=== PATIENT | male | born 1960 | race Caucasian/White ===

== ENCOUNTER → 2017-01-25 | Outpatient (CLI) | payer MEDICAID ==
--- NOTE | 2017-01-25 13:55 | XR ---
EXAMINATION TYPE: XR chest 2V DATE OF EXAM: 01/25/2017 COMPARISON: NONE INDICATION: 5 pounds weight loss TECHNIQUE: Frontal and lateral views of the chest are obtained. FINDINGS: The heart size is normal. The pulmonary vasculature is normal. The lungs are clear. IMPRESSION: 1. No acute pulmonary process.
== END | disposition home or self-care (01) ==
LOC: RADXRMAIN 11:19
PROVIDERS: ATTEND Family Medicine
DX: R63.4 Abnormal weight loss (principal)
CPT/HCPCS: 71020

== ENCOUNTER → 2017-08-28 | Outpatient (CLI) | payer MEDICAID ==
[2017-08-30 09:22] LABS: Hepatits C Virus RNA Not detected (Not detected); Hepatits C Virus RNA, Quant <12 IU/mL (<12); LOG HCV IU/mL <1.08 (<1.08)
== END | disposition home or self-care (01) ==
LOC: LABWHC1 12:04
PROVIDERS: ATTEND Family Medicine
DX: B18.2 Chronic viral hepatitis C (principal)
CPT/HCPCS: 36415; 87522

== ENCOUNTER → 2017-09-05 | Outpatient (CLI) | payer MEDICAID ==
--- NOTE | 2017-09-05 16:00 | MR ---
EXAMINATION TYPE: MR cervical spine wo con DATE OF EXAM: 09/05/2017 COMPARISON: 06/28/2012 HISTORY: Neck Pain with Left arm and Hand Weakness and Numbness Previous MRI on PACS TECHNIQUE: Multiplanar, multisequence images of the cervical spine were acquired. C2-C3: No evidence for degenerative disc disease. No disc bulge/herniation or protrusion. No Canal stenosis. Foramina are patent bilaterally. C3-C4: No evidence for degenerative disc disease. No disc bulge/herniation or protrusion. No Canal stenosis. Foramina are patent bilaterally. C4-C5: No evidence for degenerative disc disease. No disc bulge/herniation or protrusion. No Canal stenosis. Foramina are patent bilaterally. C5-C6: Moderate to severe degenerative disc disease with posterior spondylosis. Disc central protrusi on capped by spur with hypertrophic change of the uncovertebral joints results in moderate canal sten osis and abuts the anterior margin the spinal cord. Severe bilateral foraminal encroachment. C6-C7: Degenerative disc disease and broad-based disc bulging with uncovertebral joint hypertrophy. N o Canal stenosis. Neural foramina remain patent. C7-T1: No evidence for degenerative disc disease. No disc bulge/herniation or protrusion. No Canal stenosis. Foramina are patent bilaterally. Cervical segments are intact. There is normal alignment. Cervical spinal cord is of normal signal. Craniovertebral junction relationships are within normal limits. There is a stable appearing 9 mm n odule in the right supraclavicular region which may represent a cyst or lymph node. Unchanged from 20 12. IMPRESSION: 1. There is mild progression of degenerative disc disease and posterior spondylosis and disc central protrusion capped by spur at C5-C6 which results in moderate canal stenosis and abuts the anterior ma rgin of the spinal cord. Severe bilateral foraminal encroachment. 2. Stable right supraclavicular soft tissue nodule. Measures 1 cm or less. 3. Stable disc desiccation, posterior spondylosis C6-C7 with no canal stenosis or significant foramin al encroachment.
== END | disposition home or self-care (01) ==
LOC: RADMRIMAIN 15:02
PROVIDERS: ATTEND Family Medicine
DX: M48.02 Spinal stenosis, cervical region (principal); M50.222 Other cervical disc displacement at C5-C6 level; M50.322 Other cervical disc degeneration at C5-C6 level; M47.812 Spondylosis without myelopathy or radiculopathy, cervical region
CPT/HCPCS: 72141

== ENCOUNTER → 2017-12-21 | Outpatient (CLI) | payer MEDICAID ==
[2017-12-24 08:06] LABS: Hepatits C Virus RNA Not detected (Not detected); Hepatits C Virus RNA, Quant <12 IU/mL (<12); LOG HCV IU/mL <1.08 (<1.08)
== END | disposition home or self-care (01) ==
LOC: LABWHC1 12:51
DX: B18.2 Chronic viral hepatitis C (principal)
CPT/HCPCS: 36415; 87522

== ENCOUNTER → 2018-01-30 | Outpatient (CLI) | payer MEDICAID, MEDICARE ==
--- NOTE | 2018-01-31 08:47 | CT ---
EXAMINATION TYPE: CT abdomen pelvis wo con, CT ChestAbdPelvis w con DATE OF EXAM: 01/30/2018 COMPARISON: None HISTORY: Abnormal weight loss. (accession [id number]), Abnormal weight loss (accession [id number]) CT DLP: 289.4 (accession [id number]), 562.9 (accession [id number]) mGycm Automated exposure control for dose reduction was used. TECHNIQUE: Helical acquisition of images was performed from the lung bases through the pelvis initia lly without contrast and subsequently CT chest, abdomen, and pelvis were obtained with contrast utili zing 100 mL of Isovue-300. FINDINGS: LUNGS: Very mild paraseptal emphysematous changes are seen with few scattered blebs. Within the right middle lobe there are 2 3 mm solid pulmonary nodules that are subpleural on series 5 image 42 and im age 50. Linear pleural-parenchymal scarring is seen at the lung bases in addition to bibasilar subseg mental atelectasis. No pulmonary mass or focal consolidation. No evidence of pulmonary fibrosis. No p neumothorax or pleural effusion. There is mild pectus excavatum. MEDIASTINUM: Thyroid gland is somewhat heterogenous containing a dystrophic calcification and few sub centimeter hypoattenuated nodules. Thoracic aorta is within normal limits measuring 3.7 cm. No pulmon partha arterial enlargement. No greater than 1 cm short axis lymph nodes in the mediastinum. No cardiome enrike or pericardial effusion. LIVER/GB: No evidence of cholelithiasis. The liver is unremarkable in enhancement without intrahepati c biliary ductal dilatation or a definable mass. PANCREAS: Pancreas is homogeneous in enhancement without ductal dilatation. SPLEEN: No splenomegaly. ADRENALS: No significant abnormality is seen. KIDNEYS: The unenhanced images show a 2 mm left upper pole nonobstructing renal calculus. No right-si ded renal calculi. No hydronephrosis bilaterally. Kidneys enhance and excrete symmetrically. No focal renal masses seen. FREE AIR: No free air is visualized ADENOPATHY: No greater than 1 cm short axis lymph nodes are seen within the abdomen or pelvis. REPRODUCTIVE ORGANS: Heterogenous containing dystrophic calcifications within the central zone. URINARY BLADDER: No significant abnormality is seen. OSSEOUS STRUCTURES: Few scattered punctate osseous sclerotic foci are present throughout the spine a nd pelvis favored to relate to pulmonary lesions. The largest is seen at the superior endplate of L1. This measures 6 mm. Mild multilevel degenerative changes of the spine are noted. BOWEL: No bowel dilatation. No evidence of obstruction. Amount of retained colonic stool is seen sli ghtly limiting evaluation of the colon. Additionally oral contrast has not passed to the large bowel also limiting evaluation of the large bowel. No small bowel wall thickening. OTHER: Mild calcific atheromatous changes are seen of the abdominal aorta and its branches. Abdominal aorta is of normal course and caliber. IMPRESSION: 1. NO SOLID VISCERAL SUSPICIOUS MASS OR ADENOPATHY WITHIN THE CHEST, ABDOMEN, OR PELVIS. 2. TWO RIGHT-SIDED SUBPLEURAL 3 MM SOLID PULMONARY NODULES. CONSENSUS CRITERIA RECOMMENDS REPEAT CT I N 12 MONTHS TO ASSESS FOR INTERVAL GROWTH.
== END | disposition home or self-care (01) ==
LOC: RADCTMAIN 17:53
PROVIDERS: ATTEND Family Medicine
DX: R91.8 Other nonspecific abnormal finding of lung field (principal); R63.4 Abnormal weight loss
CPT/HCPCS: 71260; 74176; 74177; Q9967

== ENCOUNTER → 2024-03-20 | Outpatient (CLI) | payer MEDICAID, MEDICARE ==
--- NOTE | 2024-03-20 14:59 | CTL ---
EXAMINATION TYPE: CT Low Dose Lung DATE OF EXAM: 03/20/2024 2:01 PM CLINICAL INDICATION: Male, 63 years old with history of Z12.2 screening of respiratory organs; person al history of nicotine dependence , history of tobacco use. COMPARISON: 09/27/2018. TECHNIQUE: Multiple axial non-contrast scans were obtained from approximately the lung apices through the upper abdomen. Coronal and sagittal reformatted images were obtained. Low dose technique was uti lized. CT DLP: 98.4 mGycm, Automated exposure control for dose reduction was used. CT Contrast: Contrast used: None Oral contrast used: None FINDINGS: ======== Lack of intravenous contrast and low dose technique limits the evaluation of the vascular and soft ti ssue structures. LUNGS: No evidence of pulmonary fibrosis. No evidence of focal consolidation, pneumothorax or pleural effusion. Centrilobular emphysema changes. Nodules: RUL: None. RML: 4 mm series 5 image 41, 2 mm series 5 image 50.. Both stable from 2019. RLL: Streaky atelectasis in the lung bases.. SUGEY: None. LLL: None. AIRWAY: Patent and unremarkable. HEART: Size within normal limits. MEDIASTINUM: No gross evidence of adenopathy. VASCULATURE: No aortic aneurysm. MUSCULOSKELETAL: No acute osseous abnormalities SOFT TISSUES/LYMPH NODES: Unremarkable. LOWER NECK: No significant findings. UPPER ABDOMEN: No significant findings. IMPRESSION: 1. No clinically significant pulmonary nodules. 2. Mild emphysema. 3. Gallstone in the gallbladder neck. CT LUNG RAD AND CT CHEST RECOMMENDATION: Lung-Rad 2 Benign Appearance or Behavior: Continue annual sc reening with LDCT in 12 months. S Modifier (other clinically significant findings): None Recommend smoking cessation (if current smoker), or continuation of smoking cessation (if prior smoke r). Annual screening for lung cancer with low-dose computed tomography is recommended in adults ages 55 to 77 years who have a 30 pack-year smoking history and currently smoke or have quit within the pa st 15 years. Screening should be discontinued once a person has not smoked for 15 years or develops a health problem that substantially limits life expectancy or the ability or willingness to have curat lisa lung surgery. Lung rads 2021 [email or web address]
== END | disposition home or self-care (01) ==
LOC: RADCTMAIN 13:13
PROVIDERS: ATTEND Family Medicine
DX: Z12.2 Encounter for screening for malignant neoplasm of respiratory organs
CPT/HCPCS: 71271